=== PATIENT | male | born 1950 | race Caucasian/White ===

== ENCOUNTER 2020-06-08 06:36 | Emergency (ER) | payer MEDICARE, SELFPAY ==
--- NOTE | ~2020-06-08 | CT_ITS ---
EXAMINATION: CT abdomen pelvis w con DATE: 06/08/2020 07:35 INDICATION: Abdominal pain TECHNIQUE: Computed tomography (CT) of the abdomen and pelvis was performed with 100 mL Omnipaque-350 intravenous contrast. Automated exposure control and iterative reconstruction technique were employe d. The dose-length product was 806.99 mGy-cm. COMPARISON: None FINDINGS: Calcified nodules in the right lower lobe along with calcified paraesophageal lymph nodes and scatter ed hepatic and splenic calcifications are all consistent with old granulomatous disease. Heart size i s normal. Coronary artery disease. No pericardial or pleural effusion. Small sliding-type hiatal kristina ia. 2.3 cm hepatic cyst. Common bile duct measures up to 7 mm diameter which is within normal limits given patient age and prior cholecystectomy with surgical clips at the gallbladder fossa. No intrahep atic biliary ductal dilation. There is inflammatory stranding in the region of the head of the pancre as which is suspicious for acute interstitial pancreatitis. No peripancreatic fluid collections. Bila teral adrenal glands and right kidney are normal. A few left renal cysts the largest measuring 2.0 cm . There is mild colonic diverticulosis with a sigmoid predominance. There is no adjacent inflammator y change to suggest diverticulitis. No abnormal bowel wall thickening or obstruction. The appendix is not visualized. No pericecal inflammatory change to suggest acute appendicitis. Bladder is normal. Mild prostatomegaly. Postoperative change of prior ventral hernia mesh repair. No free intraperitonea l gas or fluid. No pathologically enlarged abdominal or pelvic lymphadenopathy. Moderate to severe th oracolumbar spondylosis. A few bone islands in the left acetabular region and proximal femurs. IMPRESSION: 1. Inflammatory stranding about the head of the pancreas suspicious for uncomplicated acute interstit ial pancreatitis. Correlate with amylase and lipase levels. Reviewed, dictated and finalized at location A. [employer] ON CALL IMPRESSION: 1. Inflammatory stranding about the head of the pancreas suspicious for uncompl icated acute interstitial pancreatitis. Correlate with amylase and lipase level s.
[2020-06-08 06:41] VITALS: BP 170/69; PULSE 73; RESP 18; TEMP 36.1; O2SAT 100
[2020-06-08 06:49] VITALS: BP 157/77; PULSE 65; RESP 18; O2SAT 100
[2020-06-08 07:05] LABS: Basophils Percent Auto 0.2 % (0.2-1.2); Eosinophils Absolute Auto 0.1 K/mm3 (0-0.3); Hematocrit 43.9 % (42.0-52.0); Hemoglobin 14.6 g/dL (14.0-18.0); Immature Granulocyte Absolute 0.05 K/mm3 (0.00-0.031); Immature Granulocyte Percent A 0.4 % (0-0.5); Lymphocytes Absolute Auto 1.51 K/mm3 (0.9-3.2); Lymphocytes Percent Auto 11.4 % (18.3-44.2); Mean Corpuscular HGB Conc 33.3 g/dl (32-36); Mean Corpuscular Hemoglobin 30.2 pg (26-34); Mean Corpuscular Volume 90.7 fl (80-100); Mean Platelet Volume 11.2 fl (7.4-10.4); Monocytes Absolute Auto 1.2 K/mm3 (0.1-0.6); Monocytes Percent Auto 9.1 % (2.6-8.5); Neutrophils Absolute Auto 10.3 K/mm3 (1.3-6.7); Neutrophils Percent Auto 77.9 % (45.5-73.1); Platelet Count Result 213 k/mm3 (150-375); Red Blood Count 4.84 M/mm3 (4.6-6.20); Red Cell Distribution Width 13.9 % (11.5-14.5); White Blood Count 13.2 K/mm3 (4.5-10.0)
[2020-06-08 07:13] LABS: Alanine Aminotransferase 28 U/L (4-50); Albumin Level 4.2 g/dL (3.5-5.1); Alkaline Phosphatase 64 U/L (38-126); Anion Gap 10 mmol/L (8-16); Aspartate Amino Transferase 24 U/L (17-59); Bilirubin,Total 0.6 mg/dL (0.2-1.3); Blood Urea Nitrogen 16 mg/dL (9-20); Calcium 9.7 mg/dL (8.4-10.2); Carbon Dioxide 26 mmol/L (22-30); Chloride 101 mmol/L (98-107); Estimated CRCL calculation 78 ml/min; Estimated Glomerular Filt Rate > 60; Glucose 101 mg/dL (75-110); Lipase 219 U/L (23-300); Potassium 3.9 mmol/L (3.4-5.0); Sodium 137 mmol/L (137-145)
[2020-06-08 07:17] LABS: Add Urine Microscopic? YES; Appearance Urine Clear (Clear); Bilirubin Urine Negative (Negative); Blood Urine Negative (Negative); Color Urine Straw (Yellow); Glucose Urine UA Negative (Negative); Ketones Urine Negative (Negative); Leukocyte Esterase Ur Negative LEU/UL (Negative); Mucus Urine Rare /lpf; Nitrate Urine Negative (Negative); Protein Urine 1+ mg/dL (Negative); RBC Urine 0-2 /hpf (0-2); Specific Grav Ur 1.013 (1.001-1.035); Squamous Epithelial Cell Urine Rare /hpf (Few); Urobilinogen Urine Negative mg/dL (<2.0); WBC Urine 0-3 /hpf
[2020-06-08] MEDS: SODIUM CHLORIDE 0.9% IV 1,000 ML 999 ML IV CONT (07:39)
[2020-06-08 07:42] VITALS: BP 170/73; PULSE 73; RESP 18; O2SAT 100
--- NOTE | 2020-06-08 08:12 | ED.ABDPAIN ---
HPI - Abdominal Pain General Chief Complaint: Abdominal Pain Stated Complaint: abd pain Time Seen by Provider: 06/08/20 07:18 Source: patient Mode of arrival: ambulatory Limitations: no limitations History of Present Illness HPI narrative: 69 years old white male presents with intermittent right upper quadrant pain radiating to right flank area started on June 04. Patient reports trouble having a bowel movement over the last 10 days. Patient been taking MiraLAX and Fleet enema without good results. Patient denies any fever, chills, nausea, vomiting, exposure to anybody known having COVID-19. History of cholecystectomy and appendectomy. Patient went to urgent care 3 days ago, CT scan of the abdomen and pelvis without contrast showed no acute abnormality. Patient denies aggravating or relieving factors. Intermittent passing gas, unable to find a comfortable position, trouble sleeping overnight. 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 Related Data Home Medications Medication Instructions Recorded Confirmed acetaminophen [Tylenol 8 Hour] 650 mg PO Q12H 06/08/20 aspirin [Aspir-81] 06/08/20 ciprofloxacin HCl 500 mg PO Q12H 06/08/20 colchicine 0.6 mg PO BID 06/08/20 etanercept [Enbrel] 25 mg SUBCUT WEEKLY 06/08/20 nebivolol [Bystolic] 5 mg PO DAILY 06/08/20 pantoprazole PO 06/08/20 pitavastatin calcium [Livalo] 4 mg PO DAILY 06/08/20 prednisone 10 mg PO DAILY 06/08/20 Allergies Allergy/AdvReac Type Severity Reaction Status Date / Time No Known Allergies Allergy Verified 06/08/20 06:45 Review of Systems Review of Systems: Narrative: CONSTITUTIONAL: Denies fever, chills, or sweats. EYES: Denies visual changes, redness, or discharge. ENT: Denies rhinorrhea, congestion, sore throat, or otalgia. CARDIOVASCULAR: Denies chest pain, palpitations, or edema. RESPIRATORY: Denies cough or dyspnea. GASTROINTESTINAL: Denies abdominal pain, nausea, vomiting, or diarrhea. GENITOURINARY: Denies dysuria or hematuria. SKIN: Denies rash or itching. MUSCULOSKELETAL: Denies back pain, joint pain, or myalgia. NEUROLOGIC: Denies headache, numbness, or weakness. PSYCHIATRIC: Denies anxiety or depression. PMFSH Past Medical History Medical History (Updated 06/08/20 @ 09:15 by Cm Salcedo MD) Cholecystectomy planned Hypertension Surgical History Surgical History (Updated 06/08/20 @ 08:15 by Cm Salcedo MD) History of appendectomy Social History Social History Gender identity (if verbalized by the patient): Male Sexual Orientation (if Verbalized by the Patient): Straight or Heterosexual Exam Narrative: Exam Narrative: General appearance: Well-developed, well-nourished Skin: Normal color Head: Normocephalic, nontraumatic Eyes: Clear conjunctiva ENT: Oropharynx normal, ears normal, nose normal Neck: Supple, nontender Chest and respiratory: Airway patent, no respiratory distress, no accessory muscle use Heart: Regular rate/rhythm Abdomen: Soft, slight diffuse tenderness, no organomegaly, quiet bowel sounds Vascular: Normal peripheral pulses, normal capillary refill. Musculoskeletal: Normal range of motion, nontender back Neurologic: Alert and oriented ?3, [employer] is normal as tested, no gross motor deficit Course Course Emergency Course: Stable Consultations Consultation #1: Dr. Araujo Clear liquid diet, pain medication, follow-up with Dr. Sandy Date: 06/08/20 Time: 09:08 Vital Signs Vital signs: Vital Signs Temperature 36.1 C L 06/08/20 06:41 Pulse Rate 73 06/08/20 06:41 Respiratory Rate 18 06/08/20 06:41 Blood Pressure 1
[2020-06-08] MEDS: ONDANSETRON INJ 4 MG/2 ML VIAL IV PUSH (09:16)
[2020-06-08] MEDS: MORPHINE SULFATE (*CRX) 4 MG/ML INJ IV PUSH (09:16)
[2020-06-08 09:36] VITALS: BP 145/71; PULSE 77; RESP 18; O2SAT 100
== END 2020-06-08 09:37 | disposition home or self-care (01) ==
PROVIDERS: Emergency Medicine; Emergency Provider Emergency Medicine
DX: K85.90 Acute pancreatitis without necrosis or infection, unspecified (principal); I10 Essential (primary) hypertension
CPT/HCPCS: 36415; 74177; 80053; 81001; 83690; 85025; 96361; 96374; 96375; 99284; J2270; J2405; J7030; Q9967